=== PATIENT | female | born 1960 | race Caucasian/White ===

== ENCOUNTER → 2017-07-05 | Outpatient (CLI) | payer OTHER, BC | END | disposition home or self-care (01) | LOC: CFH 15:44 | PROVIDERS: ATTEND Obstetrics & Gynecology | DX: Z12.31 Encounter for screening mammogram for malignant neoplasm of breast (principal) | CPT/HCPCS: G0202 ==

== ENCOUNTER 2019-07-28 10:46 | Day surgery (SDC) | payer OTHER, BC ==
[~2019-07-28] VITALS: Ht 153.7 cm; Wt 64.8 kg
[~2019-07-28 10:46] MED LIST: FENTANYL PF 250 MCG/5ML ONE; MIDAZOLAM 1 MG/ML, 2ML ONE
[2019-07-28 11:26] VITALS: BP 146/86
[2019-07-28] MEDS ORDERED: LACTATED RINGERS 1,000 ML IV SCH (11:35)
[2019-07-28] MEDS ORDERED: HYDR1TAB13 PO (11:37)
[2019-07-28] MEDS ORDERED: TRAM50TA2 PO (11:37)
[2019-07-28] MEDS ORDERED: SCOPOLAMINE PATCH, 1.5MG PATCH.TD72 TD ONE ×2 (12:51→13:00)
[2019-07-28] MEDS ORDERED: GABAPENTIN 300 MG CAPSULE ONE (12:51)
[2019-07-28] MEDS ORDERED: ACETAMINOPHEN 500 MG TABLET ONE (12:51)
[2019-07-28] MEDS ORDERED: GABAPENTIN 300 MG CAPSULE PO ONE (13:00)
[2019-07-28] MEDS ORDERED: ACETAMINOPHEN 500 MG TABLET PO ONE (13:00)
[2019-07-28] MEDS ORDERED: PROPOFOL 10 MG/ML, 20ML ONE (16:43)
[2019-07-28] MEDS ORDERED: CEFAZOLIN 1,000 MG ONE (16:43)
[2019-07-28] MEDS ORDERED: ONDANSETRON 2MG/ML, 2ML ONE (16:43)
[2019-07-28] MEDS ORDERED: DEXAMETHASONE 4 MG/ML, 1ML ONE (16:43)
[2019-07-28] MEDS ORDERED: LORazepam 2 MG/ML, 1ML IVPush PRN (17:00)
[2019-07-28] MEDS ORDERED: PROMETHAZINE 25 MG/ML, 1ML IV PRN (17:00)
[2019-07-28] MEDS ORDERED: PROMETHAZINE 25 MG SUPP PR PRN (17:00)
[2019-07-28] MEDS ORDERED: LABETALOL 5MG/ML, 20ML IV PRN (17:00)
[2019-07-28] MEDS ORDERED: OXYcodone 5 MG/5 ML ORAL.SOL UDC PO PRN (17:00)
[2019-07-28] MEDS ORDERED: ONDANSETRON ODT 8 MG PO PRN (17:00)
[2019-07-28] MEDS ORDERED: FENTANYL PF 100 MCG/2ML IV PRN (17:00)
[2019-07-28] MEDS ORDERED: ONDANSETRON 2MG/ML, 2ML IV PRN (17:00)
[2019-07-28] MEDS ORDERED: hydrALAzine 20 MG/ML, 1ML IV PRN (17:00)
[2019-07-28] MEDS ORDERED: HYDROmorphone 2 MG/ML, 1ML IVPush PRN (17:00)
== END 2019-07-28 19:29 | disposition home or self-care (01) ==
LOC: OUT 10:46 → 4NE 18:25 → OUT 19:29
PROVIDERS: ATTEND Orthopaedic Surgery
DX: S92.352A Displaced fracture of fifth metatarsal bone, left foot, initial encounter for closed fracture (principal); X50.1XXA Overexertion from prolonged static or awkward postures, initial encounter; Y93.89 Activity, other specified; Y92.096 Garden or yard of other non-institutional residence as the place of occurrence of the external cause; Y99.8 Other external cause status
CPT/HCPCS: 28485; 64445; 73630; C1713; J0690; J1100; J2250; J2405; J2704; J3010; J7120; 76000; G0378

== ENCOUNTER → 2020-02-09 | Outpatient (CLI) | payer OTHER, BC ==
[~2020-02-09] MED LIST changes: -FENTANYL PF 250 MCG/5ML ONE; +HYDR1TAB13 PO; -MIDAZOLAM 1 MG/ML, 2ML ONE; +TRAM50TA2 PO
== END | disposition home or self-care (01) ==
LOC: CFH 08:11
PROVIDERS: ATTEND Obstetrics & Gynecology
DX: Z12.31 Encounter for screening mammogram for malignant neoplasm of breast (principal)
CPT/HCPCS: 77063; 77067

== ENCOUNTER → 2021-02-10 | Outpatient (CLI) | payer OTHER, BC | END | disposition home or self-care (01) | LOC: CFH 08:45 | PROVIDERS: ATTEND Obstetrics & Gynecology | DX: Z12.31 Encounter for screening mammogram for malignant neoplasm of breast (principal) | CPT/HCPCS: 77063; 77067 ==